=== PATIENT | female | born 1945 | race Caucasian/White ===

== ENCOUNTER → 2022-02-09 11:16 | Outpatient (CLI) | payer MEDICARE, SELFPAY ==
--- NOTE | ~2022-02-09 | XR_ITS ---
XR knee RT 3V 02/09/2022 11:55 Indication: Right knee pain Procedure: 3 views right knee Comparison: 04/14/2009 Findings: There is a right total knee arthroplasty. Osteopenia. Prosthesis well seated. There are ext ensive vascular calcifications. No fracture, subluxation or dislocation. No significant joint effusio n. Impression: 1: No acute bone or joint abnormality. Reviewed, dictated and finalized at location B. Impression: 1: No acute bone or joint abnormality.
--- NOTE | ~2022-02-09 | XR_ITS ---
XR tibia fibula RT 2V DATE: 02/09/2022 11:54 INDICATION: Lower leg injury TECHNIQUE: AP and lateral views COMPARISON: 08/03/2008 right tibia-fibula FINDINGS: Status post right total knee arthroplasty with patellar resurfacing. Prominent diffuse osteopenia. There is extensive calcification of the femoral, popliteal and anterior and posterior tibial arteries . Diabetes is suggested. No fracture or dislocation, periosteal reaction or bone destruction of the tibia or fibula is detecte d. Mild plantar calcaneal enthesopathy. IMPRESSION: Status post right total knee arthroplasty Osteopenia Mild plantar calcaneal enthesopathy Extensive arterial calcifications suggesting diabetes Reviewed, dictated and finalized at location A.
--- NOTE | ~2022-02-09 | XR_ITS ---
XR tibia fibula LT 2V DATE: 02/09/2022 11:55 INDICATION: Injury, pain TECHNIQUE: AP and lateral views COMPARISON: 02/09/2022 left knee FINDINGS: Status post left total knee arthroplasty with patellar resurfacing. Prominent diffuse osteopenia. There is extensive calcification of the popliteal and anterior and posterior tibial arteries. No fracture or dislocation, periosteal reaction or bone destruction of the tibia or fibula. Minimal plantar calcaneal enthesopathy. IMPRESSION: Osteopenia Status post left total knee arthroplasty Extensive arterial calcifications suggesting diabetes Reviewed, dictated and finalized at location A.
--- NOTE | ~2022-02-09 | XR_ITS ---
XR knee LT 3V 02/09/2022 11:55 Indication: Left knee pain Procedure: 3 views left knee Comparison: 04/14/2019 Findings: There is a left total knee arthroplasty. Osteopenia. Prosthesis well seated. No fracture, s ubluxation or dislocation. There is extensive vascular calcification. Impression: 1: No acute bone or joint abnormality. Reviewed, dictated and finalized at location B. Impression: 1: No acute bone or joint abnormality.
== END ==
PROVIDERS: PCP Family Medicine; Visit Provider Physician Assistant
DX: S89.90XA Unspecified injury of unspecified lower leg, initial encounter (principal); X58.XXXA Exposure to other specified factors, initial encounter; M85.861 Other specified disorders of bone density and structure, right lower leg; M85.862 Other specified disorders of bone density and structure, left lower leg; M77.31 Calcaneal spur, right foot
CPT/HCPCS: 73562; 73590

== ENCOUNTER 2022-05-14 09:46 | Outpatient (CLI) | payer MEDICARE, SELFPAY ==
--- NOTE | 2022-05-14 11:30 | NEURO_ITS ---
Impression: # Complains of numbness of right hand. # Right moderate Carpal Tunnel Syndrome. # No ulnar neuropathy. # Normal limited needle/EMG exam. Nerve Conduction Studies Anti Sensory Summary Table Stim Site NR Peak (ms) P-T Amp (?V) Site1 Site2 Delta-P (ms) Dist (cm) [place] (m/s) Right Median Anti Sensory (2-3nd Digit) Wrist 4.4 17.2 Wrist 2-3nd Digit 4.4 14.0 32 Wrist 4.2 10.5 Wrist 2-3nd Digit 4.4 14.0 32 Right Radial Anti Sensory (Base 1st Digit) Wrist 2.0 16.3 Wrist Base 1st Digit 2.0 0.0 Right Ulnar Anti Sensory (5th Digit) Wrist 3.0 22.4 Wrist 5th Digit 3.0 14.0 47 Motor Summary Table Stim Site NR Onset (ms) O-P Amp (mV) Site1 Site2 Delta-0 (ms) Dist (cm) [place] (m/s) Right Median Motor (Abd Poll Brev) Wrist 5.2 1.5 Elbow Wrist 6.1 26.0 43 Elbow 11.3 1.3 Right Ulnar Motor (Abd Dig Minimi) Wrist 2.9 2.3 A Elbow Wrist 6.0 27.0 45 A Elbow 8.9 1.7 B Elbow Wrist 3.9 19.0 49 B Elbow 6.8 0.9 F Wave Studies NR F-Lat (ms) L-R F-Lat (ms) Right Median (Mrkrs) (Abd Poll Brev) 27.19 Right Ulnar (Mrkrs) (Abd Dig Min) 26.27 EMG Side Muscle Nerve Root Ins Act Fibs Amp Dur Recrt Comment Right 1stDorInt Ulnar C8-T1 Nml Nml Nml Nml Nml Right Ext Indicis Radial (Post Int) C7-8 Nml Nml Nml Nml Nml Right Ext Digitorum Radial (Post Int) C7-8 Nml Nml Nml Nml Nml Right BrachioRad Radial C5-6 Nml Nml Nml Nml Nml Right PronatorTeres Median C6-7 Nml Nml Nml Nml Nml Right Abd Poll Brev Median C8-T1 Nml Nml Nml Nml Nml MTDD
== END 2022-05-14 09:47 | disposition home or self-care (01) ==
PROVIDERS: PCP Family Medicine; Visit Provider Family Medicine
DX: M25.521 Pain in right elbow (principal); G56.01 Carpal tunnel syndrome, right upper limb
CPT/HCPCS: 95885; 95909

== ENCOUNTER → 2022-10-23 15:31 | Outpatient (CLI) | payer MEDICARE, SELFPAY ==
--- NOTE | ~2022-10-23 | CT_ITS ---
EXAMINATION: CT humerus RT wo con DATE: 10/23/2022 16:04 INDICATION: Right elbow pain with possible lesion identified in the mid humeral diaphysis on prior ra diographs TECHNIQUE: High resolution computed tomography (CT) of the right humerus from the shoulder through th e elbow was performed without intravenous contrast. Additional sagittal and coronal reconstructions w ere performed. Automated exposure control and iterative reconstruction technique were employed. The d ose-length product was 783.36 mGy-cm. COMPARISON: Radiographs dated 10/16/2022 FINDINGS: Slight cephalad subluxation of the humeral head with respect to the glenoid and subacromial space. Th is along with moderate fatty atrophy of the supraspinatus and subscapularis muscle belly suggests lik tata chronic rotator cuff tear. Alignment is otherwise normal. No fracture. Mild right acromioclavicul ar osteoarthritis with chondrocalcinosis. Moderate to severe glenohumeral osteoarthritis with anterio r predominant nonuniform joint space narrowing and small to moderate size marginal osteophytes along the anterior to anteroinferior glenoid and small marginal osteophytes about the humeral head. There i s a region of fluid attenuation interposed between the humeral head and the deltoid suggesting fluid and/or synovitis in the subacromial/subdeltoid bursa. Additional severe tricompartmental osteoarthrit is at the right elbow joint. There are several loose osteochondral bodies at the anterior recess whic h likely results in decreased range of motion motion with flexion. No periosteal reaction or suspicio us lytic or blastic bone lesions. There is extensive body wall edema. Calcified right perihilar nodule consistent with old granulomatou s disease. Cholecystectomy clips the gallbladder fossa. Pneumobilia and mild intrahepatic biliary mario alberto von dilation likely related to prior cholecystectomy and sphincterotomy with cholecystectomy clips at the gallbladder fossa. 1.6 cm cyst in the right hepatic lobe. Scattered small coarse calcifications in the visualized portion of the right kidney which is enlarged with innumerable cysts consistent wit h polycystic kidney disease. Small amount of ascites along the right paracolic gutter. IMPRESSION: 1. Severe right elbow tricompartmental osteoarthritis with several loose osteochondral bodies at the anterior recess of the joint space. 2. Likely chronic right rotator cuff tear with at least moderate fatty atrophy of the supraspinatus a nd subscapularis muscle bellies. 3. Moderate to severe right glenohumeral and mild acromioclavicular osteoarthritis. 4. Prominent fluid and/or synovitis suggestive of subacromial/subdeltoid bursitis. 5. Polycystic kidney disease. Reviewed, dictated and finalized at location A. [employer] IMPRESSION: 1. Severe right elbow tricompartmental osteoarthritis with several loose osteoc hondral bodies at the anterior recess of the joint space. 2. Likely chronic right rotator cuff tear with at least moderate fatty atrophy of the supraspinatus and subscapularis muscle bellies. 3. Moderate to severe right glenohumeral and mild acromioclavicular osteoarthri tis. 4. Prominent fluid and/or synovitis suggestive of subacromial/subdeltoid bursit is. 5. Polycystic kidney disease.
== END ==
PROVIDERS: PCP Family Medicine; Visit Provider Orthopaedic Surgery
DX: M19.021 Primary osteoarthritis, right elbow (principal); M19.011 Primary osteoarthritis, right shoulder; Q61.3 Polycystic kidney, unspecified
CPT/HCPCS: 73200